=== PATIENT | male | born 1955 | race Caucasian/White ===

== ENCOUNTER 2017-05-29 10:29 | Emergency (ER) | payer SELFPAY ==
[~2017-05-29] VITALS: Ht 180.3 cm; Wt 90.0 kg
[~2017-05-29 10:29] MED LIST: CHOLESTEROL MED; GLIPIZIDE5 MG PO; IBUPROFEN200 MG PO; LISINOPRIL2.5 MG PO; MECLIZINE25 MG PO
[2017-05-29] MEDS ORDERED: HUMULIN 70/30 SC (11:03)
[2017-05-29] MEDS ORDERED: DIOVAN160 MG PO (11:04)
[2017-05-29] MEDS ORDERED: NOVOLIN 70/30 SC (11:04)
[2017-05-29] MEDS ORDERED: CLOPIDOGREL75 MG PO (11:05)
[2017-05-29] MEDS ORDERED: AMLODIPINE5 MG PO (11:05)
[2017-05-29] MEDS ORDERED: LYRICA25 MG PO (11:06)
[2017-05-29] MEDS ORDERED: GLIPIZIDE ER5 MG PO (11:06)
[2017-05-29] MEDS ORDERED: ASPIRINCHW 81MG PO (11:06)
[2017-05-29] MEDS ORDERED: SILVADENE1 % EX (11:07)
[2017-05-29 11:49] LABS: HEMATOCRIT 40.6 % (39.0-50.0); HEMOGLOBIN 13.6 g/dl (14.0-18.0); IMMATURE GRANULOCYTES 0.5 % (0.0-1.0); MEAN CELL VOLUME 81.5 fL CALC (80.0-100.0); MEAN CORPUSCULAR HGB 27.3 pG CALC (26.0-32.0); MEAN CORPUSCULAR HGB CONC 33.5 g/L CALC (32.0-36.0); NEUT# 7.02 thou/uL (1.82-7.42); RED BLOOD COUNT 4.98 mill/uL (4.70-6.10); RED CELL DISTRI WIDTH 14.3 % (11.5-15.5)
[2017-05-29 12:10] LABS: ANION GAP 17 (6-22 (CALC)); BUN 20 mg/dL (8-23); BUN/CREATININE RATIO 15 (12-20 (CALC)); CARBON DIOXIDE 25 mmol/l (22-30); CHLORIDE 103 mmol/l (95-108); CREATININE 1.3 mg/dL (0.7-1.3); GFR 56 ML/MIN (>=60 (CALC)); GFR FOR AFR.AMER. > 60 ML/MIN (>=60 (CALC)); POTASSIUM 4.6 mmol/l (3.5-5.1); SODIUM 140 mmol/l (137-146)
[2017-05-29] MEDS ORDERED: DOXYCYCLINE100 MG PO (12:51)
[2017-05-29 13:10] VITALS: BP 142/76
== END 2017-05-29 13:10 | disposition home or self-care (01) | DRG 603 ==
LOC: ED 10:29
PROVIDERS: Family Medicine
DX: L03.032 Cellulitis of left toe (principal); E11.9 Type 2 diabetes mellitus without complications; Z89.422 Acquired absence of other left toe(s); Z79.4 Long term (current) use of insulin; R50.9 Fever, unspecified; R22.42 Localized swelling, mass and lump, left lower limb; R42 Dizziness and giddiness

== ENCOUNTER 2017-05-29 14:09 | Emergency (ER) | payer SELFPAY ==
[~2017-05-29] VITALS: Ht 180.3 cm; Wt 90.0 kg
[~2017-05-29 14:09] MED LIST changes: +AMLODIPINE5 MG PO; +ASPIRINCHW 81MG PO; +CLOPIDOGREL75 MG PO; +DIOVAN160 MG PO; +DOXYCYCLINE100 MG PO; +GLIPIZIDE ER5 MG PO; +HUMULIN 70/30 SC; +LYRICA25 MG PO; +NOVOLIN 70/30 SC; +SILVADENE1 % EX
[2017-05-29 14:20] VITALS: BP 119/88
== END 2017-05-29 16:32 | DRG 603 ==
LOC: ED 14:09
DX: L03.032 Cellulitis of left toe (principal); E11.9 Type 2 diabetes mellitus without complications; Z89.422 Acquired absence of other left toe(s); Z79.4 Long term (current) use of insulin; R50.9 Fever, unspecified; R22.42 Localized swelling, mass and lump, left lower limb

== ENCOUNTER 2017-08-04 20:38 | Emergency (ER) | payer OTHER ==
[~2017-08-04] VITALS: Ht 180.3 cm; Wt 92.4 kg
[2017-08-05 01:12] VITALS: BP 168/87
== END 2017-08-05 01:12 | disposition home or self-care (01) | DRG 639 ==
LOC: ED 20:38
DX: E11.621 Type 2 diabetes mellitus with foot ulcer (principal); L97.529 Non-pressure chronic ulcer of other part of left foot with unspecified severity; I10 Essential (primary) hypertension; Z89.412 Acquired absence of left great toe

== ENCOUNTER 2017-08-10 16:31 | Inpatient (IN) | payer OTHER ==
[~2017-08-10] VITALS: Wt 90.3 kg
[2017-08-10 17:27] LABS: HEMATOCRIT 44.6 % (39.0-50.0); HEMOGLOBIN 15.3 g/dl (14.0-18.0); IMMATURE GRANULOCYTES 0.4 % (0.0-1.0); MEAN CELL VOLUME 84.3 fL CALC (80.0-100.0); MEAN CORPUSCULAR HGB 28.9 pG CALC (26.0-32.0); MEAN CORPUSCULAR HGB CONC 34.3 g/L CALC (32.0-36.0); NEUT# 17.27 thou/uL (1.82-7.42); RED BLOOD COUNT 5.29 mill/uL (4.70-6.10)
[2017-08-10 17:37] LABS: INFLUENZA A NONE DETECTED (NONE DETECT); INFLUENZA B NONE DETECTED (NONE DETECT)
[2017-08-10 17:40] LABS: URINE BILIRUBIN - DIPSTICK NEGATIVE (NEGATIVE); URINE BLOOD DIPSTICK MODERATE (NEGATIVE); URINE COLOR YELLOW; URINE GLUCOSE - DIPSTICK >=1000 mg/dL (NEGATIVE); URINE KETONE NEGATIVE (NEGATIVE); URINE LEUK ESTERASE NEGATIVE (NEGATIVE); URINE NITRITE - DIPSTICK NEGATIVE (Negative); URINE PROTEIN - DIPSTICK 100 mg/dL (NEG-TRACE); URINE SPECIFIC GRAVITY 1.025; URINE UROBILINOGEN - DIPSTICK 0.2 E.U./dL (0.2)
[2017-08-10 17:41] LABS: URINE CLARITY TURBID
[2017-08-10 17:42] LABS: BARBITURATES NEGATIVE (NEGATIVE); COCAINE NEGATIVE (NEGATIVE); METHADONE NEGATIVE (NEGATIVE); OXCYCODONE NEGATIVE (NEGATIVE); TETRAHYDROCANNABIONOL NEGATIVE (NEGATIVE); TRICYLIC ANTIDEPRESSANTS NEGATIVE (NEGATIVE)
[2017-08-10 17:47] LABS: ALKALINE PHOSPHATASE 120 u/l (38-126); ANION GAP 23 (6-22 (CALC)); BILIRUBIN, TOTAL 2.1 mg/dL (0.0-1.4); BUN 19 mg/dL (8-23); BUN/CREATININE RATIO 16 (12-20 (CALC)); CARBON DIOXIDE 22 mmol/l (22-30); CHLORIDE 97 mmol/l (95-108); CREATININE 1.2 mg/dL (0.7-1.3); GFR > 60 ML/MIN (>=60 (CALC)); GFR FOR AFR.AMER. > 60 ML/MIN (>=60 (CALC)); POTASSIUM 4.2 mmol/l (3.5-5.1); SGOT/AST 33 u/l (19-48); SGPT/ALT 36 u/l (11-66); SODIUM 138 mmol/l (137-146)
[2017-08-10 17:48] LABS: ALBUMIN 4.5 g/dL (3.2-5.0); TOTAL PROTEIN 8.2 g/dL (6.3-8.2)
[2017-08-10 18:02] LABS: MYOGLOBIN 57 ng/mL (0 - 121)
[2017-08-10 19:16] VITALS: BP 165/78
[2017-08-10 19:45] VITALS: BP 148/77
[2017-08-10 19:58] LABS: URINE SQUAMOUS EPITHELIAL CELL FEW EPI/hpf (0-FEW)
[2017-08-10 20:15] VITALS: BP 123/80
[2017-08-10 20:30] VITALS: BP 135/76
[2017-08-10 20:45] VITALS: BP 152/75
[2017-08-10 21:46] VITALS: BP 123/61
[2017-08-11] VITALS (13 sets, daily range): BP systolic 138–175; BP diastolic 74–105
[2017-08-11 06:12] LABS: IMMATURE GRANULOCYTES 0.6 % (0.0-1.0); MEAN CORPUSCULAR HGB 29.3 pG CALC (26.0-32.0); MEAN CORPUSCULAR HGB CONC 33.7 g/L CALC (32.0-36.0); NEUT# 9.16 thou/uL (1.82-7.42); RED BLOOD COUNT 4.23 mill/uL (4.70-6.10); RED CELL DISTRI WIDTH 16.4 % (11.5-15.5)
[2017-08-11 06:17] LABS: HEMATOCRIT 36.8 % (39.0-50.0); HEMOGLOBIN 12.4 g/dl (14.0-18.0)
[2017-08-11 06:30] LABS: ANION GAP 14 (6-22 (CALC)); BUN 17 mg/dL (8-23); BUN/CREATININE RATIO 14 (12-20 (CALC)); CALCULATED LDLCHOLESTEROL 32 mg/dL (62-129 (CALC)); CARBON DIOXIDE 24 mmol/l (22-30); CHLORIDE 104 mmol/l (95-108); CHOLESTEROL HDL RATIO 5.7 (<4.4 (CALC)); CREATININE 1.2 mg/dL (0.7-1.3); GFR > 60 ML/MIN (>=60 (CALC)); GFR FOR AFR.AMER. > 60 ML/MIN (>=60 (CALC)); HDL CHOLESTEROL 22 mg/dL (>=40); POTASSIUM 3.6 mmol/l (3.5-5.1); SODIUM 139 mmol/l (137-146); TOTAL CHOLESTEROL 125 mg/dl (0-199); TOTAL TRIGLYCERIDES 353 mg/dl (30-149); VLDL CHOLESTROL 71 mg/dl (4-45 (CALC))
[2017-08-12] VITALS (17 sets, daily range): BP systolic 113–208; BP diastolic 70–106
[2017-08-12 05:09] LABS: HEMATOCRIT 38.2 % (39.0-50.0); HEMOGLOBIN 12.8 g/dl (14.0-18.0); IMMATURE GRANULOCYTES 0.6 % (0.0-1.0); MEAN CELL VOLUME 86.8 fL CALC (80.0-100.0); MEAN CORPUSCULAR HGB 29.1 pG CALC (26.0-32.0); MEAN CORPUSCULAR HGB CONC 33.5 g/L CALC (32.0-36.0); NEUT# 7.14 thou/uL (1.82-7.42); RED BLOOD COUNT 4.4 mill/uL (4.70-6.10); RED CELL DISTRI WIDTH 16.5 % (11.5-15.5)
[2017-08-12 05:24] LABS: BUN 11 mg/dL (8-23); BUN/CREATININE RATIO 9 (12-20 (CALC)); CARBON DIOXIDE 24 mmol/l (22-30); CHLORIDE 102 mmol/l (95-108); CREATININE 1.2 mg/dL (0.7-1.3); GFR > 60 ML/MIN (>=60 (CALC)); GFR FOR AFR.AMER. > 60 ML/MIN (>=60 (CALC)); SODIUM 138 mmol/l (137-146)
[2017-08-12 05:26] LABS: ANION GAP 16 (6-22 (CALC)); POTASSIUM 3.7 mmol/l (3.5-5.1)
[2017-08-13] VITALS (11 sets, daily range): BP systolic 110–162; BP diastolic 53–81
[2017-08-13 05:35] LABS: CREATININE 1.5 mg/dL (0.7-1.3)
[2017-08-13 05:50] LABS: HEMATOCRIT 34.7 % (39.0-50.0); HEMOGLOBIN 11.6 g/dl (14.0-18.0); IMMATURE GRANULOCYTES 0.4 % (0.0-1.0); MEAN CELL VOLUME 88.3 fL CALC (80.0-100.0); MEAN CORPUSCULAR HGB 29.5 pG CALC (26.0-32.0); MEAN CORPUSCULAR HGB CONC 33.4 g/L CALC (32.0-36.0); NEUT# 6.8 thou/uL (1.82-7.42); RED BLOOD COUNT 3.93 mill/uL (4.70-6.10); RED CELL DISTRI WIDTH 16.3 % (11.5-15.5)
[2017-08-14] VITALS (14 sets, daily range): BP systolic 140–184; BP diastolic 66–95
[2017-08-14 05:28] LABS: HEMATOCRIT 36.6 % (39.0-50.0); MEAN CELL VOLUME 87.8 fL CALC (80.0-100.0); MEAN CORPUSCULAR HGB 28.8 pG CALC (26.0-32.0); MEAN CORPUSCULAR HGB CONC 32.8 g/L CALC (32.0-36.0); RED BLOOD COUNT 4.17 mill/uL (4.70-6.10); RED CELL DISTRI WIDTH 16.3 % (11.5-15.5)
[2017-08-14 05:48] LABS: ANION GAP 16 (6-22 (CALC)); BUN 11 mg/dL (8-23); BUN/CREATININE RATIO 9 (12-20 (CALC)); CARBON DIOXIDE 26 mmol/l (22-30); CHLORIDE 102 mmol/l (95-108); CREATININE 1.2 mg/dL (0.7-1.3); GFR > 60 ML/MIN (>=60 (CALC)); GFR FOR AFR.AMER. > 60 ML/MIN (>=60 (CALC)); POTASSIUM 3.6 mmol/l (3.5-5.1); SODIUM 140 mmol/l (137-146)
[2017-08-14] MEDS ORDERED: HYDROCHLOROT25 MG PO ×2 (11:58→13:04)
[2017-08-14] MEDS ORDERED: VALSARTAN160 MG PO ×2 (11:59→13:04)
[2017-08-14] MEDS ORDERED: PLAVIX75 MG PO ×2 (12:00→13:04)
[2017-08-14] MEDS ORDERED: ASPIRIN 81 LOW81 MG PO ×2 (12:00→13:04)
[2017-08-14] MEDS ORDERED: GLIPIZIDE5 M2 PO ×2 (12:01→13:04)
[2017-08-14] MEDS ORDERED: TRAMADOL HYDROC50 MG PO ×3 (12:01→13:04)
[2017-08-14] MEDS ORDERED: LIPITOR20 M1 PO ×2 (12:45→13:04)
[2017-08-14] MEDS ORDERED: HUMULIN 70/30 SC ×2 (12:46→13:04)
[2017-08-14] MEDS ORDERED: LYRICA75 MG PO ×2 (12:47→13:04)
[2017-08-14] MEDS ORDERED: ROCEPHIN 2 GM2 GM IV (13:04)
[2017-08-14] MEDS ORDERED: AMLODIPINE BESYL5 MG PO (13:04)
[2017-08-14] MEDS ORDERED: FLORASTOR250 M1 PO (13:04)
[2017-08-14] MEDS ORDERED: LOPRESSOR25 MG PO (23:12)
[2017-08-15] VITALS: BP 140/70
[2017-08-15 07:00] VITALS: BP 147/96
[2017-08-15 07:47] LABS: ANION GAP 15 (6-22 (CALC)); BUN 13 mg/dL (8-23); BUN/CREATININE RATIO 12 (12-20 (CALC)); CARBON DIOXIDE 31 mmol/l (22-30); CHLORIDE 99 mmol/l (95-108); CREATININE 1.1 mg/dL (0.7-1.3); GFR > 60 ML/MIN (>=60 (CALC)); GFR FOR AFR.AMER. > 60 ML/MIN (>=60 (CALC)); POTASSIUM 3.4 mmol/l (3.5-5.1); SODIUM 142 mmol/l (137-146)
[2017-08-15 12:00] VITALS: BP 133/73
== END 2017-08-15 17:40 | disposition home health service (06) | DRG 564 ==
LOC: ED 16:31 → ED-I 16:54 → ED 16:54 → ED-I 17:56 → ED 18:25 → ICU 18:26
PROVIDERS: Emergency Medicine; Nurse Practitioner Family; ADMIT Internal Medicine; ATTEND Internal Medicine
PROC: 02HV33Z Insertion of Infusion Device into Superior Vena Cava, Percutaneous Approach (ICD-10-PCS; principal; 2017-08-14)
PROC: B518ZZA Fluoroscopy of Superior Vena Cava, Guidance (ICD-10-PCS; 2017-08-14)
DX: T87.44 Infection of amputation stump, left lower extremity (principal); A40.1 Sepsis due to streptococcus, group B; E11.10 Type 2 diabetes mellitus with ketoacidosis without coma; E11.42 Type 2 diabetes mellitus with diabetic polyneuropathy; M86.9 Osteomyelitis, unspecified; L03.116 Cellulitis of left lower limb; E11.69 Type 2 diabetes mellitus with other specified complication; E11.621 Type 2 diabetes mellitus with foot ulcer; L97.529 Non-pressure chronic ulcer of other part of left foot with unspecified severity; E11.51 Type 2 diabetes mellitus with diabetic peripheral angiopathy without gangrene; I10 Essential (primary) hypertension; E78.5 Hyperlipidemia, unspecified; F17.210 Nicotine dependence, cigarettes, uncomplicated; F41.9 Anxiety disorder, unspecified; Y83.5 Amputation of limb(s) as the cause of abnormal reaction of the patient, or of later complication, without mention of misadventure at the time of the procedure; Z79.4 Long term (current) use of insulin; Z91.14 Patient's other noncompliance with medication regimen
CPT/HCPCS: J1650

== ENCOUNTER 2017-10-18 20:02 | Inpatient (IN) | payer MEDICAID ==
[~2017-10-18] VITALS: Ht 152.4 cm; Wt 87.5 kg
[~2017-10-18 20:02] MED LIST changes: +AMLODIPINE BESYL5 MG PO; +ASPIRIN 81 LOW81 MG PO; +FLORASTOR250 M1 PO; +GLIPIZIDE5 M2 PO; +HYDROCHLOROT25 MG PO; +LIPITOR20 M1 PO; +LOPRESSOR25 MG PO; +LYRICA75 MG PO; +PLAVIX75 MG PO; +ROCEPHIN 2 GM2 GM IV; +TRAMADOL HYDROC50 MG PO; +VALSARTAN160 MG PO
[2017-10-18 20:37] LABS: IMMATURE GRANULOCYTES 0.6 % (0.0-1.0); MEAN CELL VOLUME 85.3 fL CALC (80.0-100.0); MEAN CORPUSCULAR HGB CONC 34.1 g/L CALC (32.0-36.0); RED BLOOD COUNT 5.44 mill/uL (4.70-6.10); RED CELL DISTRI WIDTH 12.9 % (11.5-15.5)
[2017-10-18 20:42] LABS: HEMOGLOBIN 15.8 g/dl (14.0-18.0)
[2017-10-18 20:43] LABS: HEMATOCRIT 46.4 % (39.0-50.0)
[2017-10-18 21:00] LABS: ALBUMIN 4.4 g/dL (3.2-5.0); BILIRUBIN, TOTAL 2.9 mg/dL (0.0-1.4); CREATININE 1.6 mg/dL (0.7-1.3); TOTAL PROTEIN 7.8 g/dL (6.3-8.2)
[2017-10-19 01:11] LABS: URINE BILIRUBIN - DIPSTICK NEGATIVE (NEGATIVE); URINE BLOOD DIPSTICK MODERATE (NEGATIVE); URINE COLOR YELLOW; URINE GLUCOSE - DIPSTICK 500 mg/dL (NEGATIVE); URINE KETONE TRACE mg/dL (NEGATIVE); URINE LEUK ESTERASE NEGATIVE (NEGATIVE); URINE NITRITE - DIPSTICK NEGATIVE (Negative); URINE PROTEIN - DIPSTICK 100 mg/dL (NEG-TRACE); URINE SPECIFIC GRAVITY 1.025; URINE UROBILINOGEN - DIPSTICK 0.2 E.U./dL (0.2)
[2017-10-19 01:12] LABS: URINE CLARITY SL CLOUDY
[2017-10-19 01:27] LABS: URINE COARSE GRANULAR CAST FEW lpf; URINE MUCUS FEW hpf (NONE-FEW); URINE SQUAMOUS EPITHELIAL CELL FEW EPI/hpf (0-FEW)
[2017-10-19 04:43] VITALS: BP 123/71
[2017-10-19 04:48] LABS: IMMATURE GRANULOCYTES 0.7 % (0.0-1.0); MEAN CELL VOLUME 86.1 fL CALC (80.0-100.0); MEAN CORPUSCULAR HGB 28.9 pG CALC (26.0-32.0); MEAN CORPUSCULAR HGB CONC 33.6 g/L CALC (32.0-36.0); NEUT# 16.29 thou/uL (1.82-7.42); RED BLOOD COUNT 4.67 mill/uL (4.70-6.10); RED CELL DISTRI WIDTH 13.2 % (11.5-15.5)
[2017-10-19 04:49] LABS: HEMATOCRIT 40.2 % (39.0-50.0); HEMOGLOBIN 13.5 g/dl (14.0-18.0)
[2017-10-19 05:02] LABS: CREATININE 1.6 mg/dL (0.7-1.3); POTASSIUM 4.1 mmol/l (3.5-5.1)
[2017-10-19 06:03] VITALS: BP 101/63
[2017-10-19 07:50] VITALS: BP 115/71
[2017-10-19 11:00] VITALS: BP 125/84
[2017-10-19] MEDS ORDERED: NOVOLOG MIX100 U/ML SC (12:20)
[2017-10-19 13:32] VITALS: BP 125/84
== END 2017-10-19 15:07 | DRG 565 ==
LOC: ED 20:02 → ED-I 10-19 03:17 → ED 10-19 03:35 → MS2 10-19 03:36
PROVIDERS: Family Medicine; ADMIT Internal Medicine; ATTEND Internal Medicine
DX: T87.44 Infection of amputation stump, left lower extremity (principal); N17.9 Acute kidney failure, unspecified; E11.621 Type 2 diabetes mellitus with foot ulcer; L97.529 Non-pressure chronic ulcer of other part of left foot with unspecified severity; E11.51 Type 2 diabetes mellitus with diabetic peripheral angiopathy without gangrene; E86.0 Dehydration; E11.65 Type 2 diabetes mellitus with hyperglycemia; I10 Essential (primary) hypertension; E78.5 Hyperlipidemia, unspecified; Y83.5 Amputation of limb(s) as the cause of abnormal reaction of the patient, or of later complication, without mention of misadventure at the time of the procedure; Z79.4 Long term (current) use of insulin; Z89.432 Acquired absence of left foot; Z87.891 Personal history of nicotine dependence; Z95.820 Peripheral vascular angioplasty status with implants and grafts; Z91.14 Patient's other noncompliance with medication regimen
CPT/HCPCS: G0378; J1650

== ENCOUNTER 2018-01-07 16:39 | Emergency (ER) | payer OTHER ==
[~2018-01-07] VITALS: Ht 180.3 cm; Wt 90.9 kg
[~2018-01-07 16:39] MED LIST changes: +NOVOLOG MIX100 U/ML SC
[2018-01-07] MEDS ORDERED: LOSARTAN POT50 MG PO (17:42)
[2018-01-07 17:46] LABS: HEMATOCRIT 39.6 % (39.0-50.0); HEMOGLOBIN 12.8 g/dl (14.0-18.0); IMMATURE GRANULOCYTES 0.3 % (0.0-5.0); MEAN CELL VOLUME 87.8 fL CALC (80.0-100.0); MEAN CORPUSCULAR HGB 28.4 pG CALC (26.0-32.0); MEAN CORPUSCULAR HGB CONC 32.3 g/L CALC (32.0-36.0); NEUT# 7.19 thou/uL (1.82-7.42); RED BLOOD COUNT 4.51 mill/uL (4.70-6.10); RED CELL DISTRI WIDTH 13.2 % (11.5-15.5)
[2018-01-07 18:02] LABS: ALBUMIN 4.2 g/dL (3.2-5.0); ALKALINE PHOSPHATASE 81 u/l (38-126); ANION GAP 17 (6-22 (CALC)); BILIRUBIN, TOTAL 2.1 mg/dL (0.0-1.4); BUN 19 mg/dL (8-23); BUN/CREATININE RATIO 14 (12-20 (CALC)); CARBON DIOXIDE 23 mmol/l (22-30); CHLORIDE 108 mmol/l (95-108); CREATININE 1.3 mg/dL (0.7-1.3); GFR 56 ML/MIN (>=60 (CALC)); GFR FOR AFR.AMER. > 60 ML/MIN (>=60 (CALC)); POTASSIUM 4.4 mmol/l (3.5-5.1); SGOT/AST 16 u/l (19-48); SGPT/ALT 27 u/l (11-66); TOTAL PROTEIN 7.7 g/dL (6.3-8.2)
[2018-01-07 18:04] LABS: SODIUM 144 mmol/l (137-146)
[2018-01-07 21:01] VITALS: BP 145/65
== END 2018-01-07 20:57 | disposition left against medical advice (07) ==
LOC: ED 16:39
PROVIDERS: Emergency Medicine
DX: J18.9 Pneumonia, unspecified organism (principal); J91.8 Pleural effusion in other conditions classified elsewhere; I71.2 Thoracic aortic aneurysm, without rupture; I10 Essential (primary) hypertension; E11.9 Type 2 diabetes mellitus without complications; R06.02 Shortness of breath; R05 Cough; Z91.19 Patient's noncompliance with other medical treatment and regimen
CPT/HCPCS: Q9967

== ENCOUNTER 2018-01-07 21:50 | Emergency (ER) | payer OTHER ==
[~2018-01-07] VITALS: Ht 180.3 cm; Wt 90.0 kg
[~2018-01-07 21:50] MED LIST changes: +LOSARTAN POT50 MG PO
[2018-01-08 01:11] VITALS: BP 132/63
== END 2018-01-08 00:27 | disposition short-term general hospital (02) ==
LOC: ED 21:50
DX: J18.9 Pneumonia, unspecified organism (principal); J44.0 Chronic obstructive pulmonary disease with (acute) lower respiratory infection; J91.8 Pleural effusion in other conditions classified elsewhere; E11.9 Type 2 diabetes mellitus without complications; I71.2 Thoracic aortic aneurysm, without rupture; I10 Essential (primary) hypertension; Z91.14 Patient's other noncompliance with medication regimen
CPT/HCPCS: Q9967

== ENCOUNTER 2018-05-30 12:52 | Emergency (ER) | payer OTHER ==
[~2018-05-30] VITALS: Ht 180.3 cm; Wt 100.0 kg
[2018-05-30] MEDS ORDERED: LOPRESSOR 550 MG/TAB PO (13:15)
[2018-05-30] MEDS ORDERED: MICRO-K10 MEQ PO (13:15)
[2018-05-30] MEDS ORDERED: HYDROCO/APAP1 TA9 PO (13:17)
[2018-05-30] MEDS ORDERED: LEVEMIR100 UNIT/M SC (13:17)
[2018-05-30] MEDS ORDERED: FOLIC ACID1 M1 PO (13:18)
[2018-05-30] MEDS ORDERED: LASIX 40 MG TAB40 MG PO (13:18)
[2018-05-30] MEDS ORDERED: FAMOTIDINE40 M1 PO (13:18)
[2018-05-30] MEDS ORDERED: CLOPIDOGREL75 MG PO (13:19)
[2018-05-30] MEDS ORDERED: HUMALOG100 UNIT/M SC (13:19)
[2018-05-30] MEDS ORDERED: MELATONIN2.5 MG PO (13:20)
[2018-05-30] MEDS ORDERED: TAM75CAP PO (14:40)
[2018-05-30] MEDS ORDERED: ONDANSETRON4 MG PO (14:42)
[2018-05-30 14:45] VITALS: BP 134/74
== END 2018-05-30 14:45 | disposition home or self-care (01) ==
LOC: ED 12:52
DX: J11.1 Influenza due to unidentified influenza virus with other respiratory manifestations (principal); I10 Essential (primary) hypertension; E11.9 Type 2 diabetes mellitus without complications; R50.9 Fever, unspecified; R42 Dizziness and giddiness; R53.1 Weakness

== ENCOUNTER 2019-01-02 00:51 | Emergency (ER) | payer MEDICARE ==
[~2019-01-02] VITALS: Ht 180.3 cm; Wt 93.0 kg
[~2019-01-02 00:51] MED LIST changes: +FAMOTIDINE40 M1 PO; +FOLIC ACID1 M1 PO; +HUMALOG100 UNIT/M SC; +HYDROCO/APAP1 TA9 PO; +LASIX 40 MG TAB40 MG PO; +LEVEMIR100 UNIT/M SC; +LOPRESSOR 550 MG/TAB PO; +MELATONIN2.5 MG PO; +MICRO-K10 MEQ PO; +ONDANSETRON4 MG PO; +TAM75CAP PO
[2019-01-02] MEDS ORDERED: IBUPROFEN600 MG PO (01:14)
[2019-01-02] MEDS ORDERED: AMOXICILLIN500 MG PO (01:14)
[2019-01-02 03:30] VITALS: BP 171/69
[2019-01-02] MEDS ORDERED: PLAVIX75 MG PO (03:41)
== END 2019-01-02 03:30 | disposition home or self-care (01) ==
LOC: ED 00:51
DX: K02.9 Dental caries, unspecified (principal); K05.10 Chronic gingivitis, plaque induced; I10 Essential (primary) hypertension; E11.9 Type 2 diabetes mellitus without complications; Z79.4 Long term (current) use of insulin

== ENCOUNTER 2019-07-02 | Emergency (ER) | payer MEDICARE, MEDICAID ==
[~2019-07-02] MED LIST changes: +AMOXICILLIN500 MG PO; +IBUPROFEN600 MG PO; +LABETALOL200 MG PO; +LIPITOR20 MG PO; -LOSARTAN POT50 MG PO; +LOSARTAN POTASS50 MG PO; +LYRICA50 MG PO
[2019-07-02] MEDS ORDERED: AMOXICILLIN500 MG PO (00:42)
[2019-07-02] MEDS ORDERED: PERCOCET 5/325M1 TAB PO (00:42)
== END 2019-07-02 01:35 | disposition home or self-care (01) ==
DX: K08.89 Other specified disorders of teeth and supporting structures (principal); I10 Essential (primary) hypertension; E11.9 Type 2 diabetes mellitus without complications; Z79.4 Long term (current) use of insulin